=== PATIENT | female | born 1975 | race American Indian/Alaskan Native ===

== ENCOUNTER 2025-06-20 22:22 | Emergency (ER) | payer BC, SELFPAY ==
[2025-06-20 22:26] VITALS: BP 128/86
[2025-06-20 22:47] LABS: Hematocrit 45.0 % (37.0-47.0); Hemoglobin 15.7 g/dL (12.0-16.0); Mean Corp Hgb Conc. 34.9 g/dL (33.0-37.0); Mean Corpuscular Volume 87.0 fL (81.0-99.0); Nucleated Red Blood Cells % 0 %; Platelet Count 263 10^3/uL (130-400); Red Cell Dist. Width 12.4 % (11.5-14.5)
[2025-06-20 23:02] LABS: HCG, Serum Qualitative Screen Negative
[2025-06-20 23:06] LABS: ALT (SGPT) 38 U/L (0-35); AST (SGOT) 25 U/L (14-36); Albumin 4.8 g/dl (3.5-5.0); Alkaline Phosphatase 44 U/L (38-126); Blood Urea Nitrogen 13 mg/dl (7-17); Calcium 9.8 mg/dl (8.4-10.2); Carbon Dioxide 24 mmol/L (22-30); Chloride 106 mmol/L (98-107); Glucose 109 mg/dl (70-99); Potassium 4.3 mmol/L (3.5-5.1); Sodium 137 mmol/L (135-145); Total Protein 8.1 g/dl (6.3-8.2); eGFR > 60.00
[2025-06-20 23:10] LABS: Troponin I < 0.012 ng/ml
[2025-06-21 00:19] VITALS: BMI 32.3
[2025-06-21 01:07] VITALS: BP 122/71
[2025-06-21 02:27] LABS: Urine Character Slightly Cloudy (Clear)
--- NOTE | 2025-06-21 02:28 | ED.GENMED ---
History of Present Illness
General
Chief Complaint: Chest Pain
Source: patient
Exam Limitations: none
Time Seen by Provider: 06/21/25 01:42
Nursing documentation reviewed up to this point in time: agreed with except (Patient complains of left lateral distal rib/flank pain)
History of Present Illness
History of Present Illness:
This is a 50-year-old woman with history of hypertension, ghn-vunlrfo-onbxsbudm diabetes and 1 previous episode of shingles that occurred with COVID URI.
She complains of left lateral flank pain that began around 7 PM tonight. Left lateral flank pain is worse with direct palpation and she has a feeling or sense that she is swollen left lateral rib area. She denies cough nor shortness of breath, no
fevers or chills, no injury nor fall. No palpitations, no abdominal pain, no nausea or vomiting, no diarrhea or constipation. She denies heavy lifting. She denies dysuria nor urgency nor hematuria. She does admit to some urinary frequency but
this is chronic and she states related to liberal water drinking on a daily basis.
She and her returned from a trip to [facility] over 2 weeks ago. She denies leg pain or swelling.
She has remote history of hysterectomy.
Past History
Past History
ED Past Medical History: HTN and NIDDM
ED Past Surgical History: and Gynecological (Hysterectomy)
Social History
Tobacco: Non-smoker
Alcohol: None
Personal:
Living: with family
Employment: Employed
Family History
Family History: Other (Noncontributory)
Phy Exam
Physical Exam
Physical Exam:
GENERAL: 50-year-old woman appears her stated age, awake and alert, pleasant, appears in no acute distress. Vital signs within normal limits.
EYE: anicteric
NECK: Supple, nontender, no meningismus, no significant adenopathy.
ENT: oral mucosa is moist. No rhinorrhea.
CARDIAC: Regular rate and rhythm. no murmur. No rub.
LUNGS: Clear breath sounds bilaterally, no acute respiratory distress, no wheezes/rales/rhonchi. There is mild to moderate tenderness left lateral flank as well as mild tenderness left anterior distal costal margin and moderate tenderness left
posterior flank region. Palpation clearly reproduces patient's pain complaint. There is no soft tissue swelling. No ecchymosis and no rash.
ABDOMEN: Soft, nondistended, without focal tenderness, no r/g, mild left CVA tenderness to palpation as well as percussion, normoactive BS.
NEUROLOGICAL: Alert and oriented x3, no focal neuro deficits. Gait is kay and steady.
SKIN: Warm and dry, normal color, skin intact. No rash.
MUSCULOSKELETAL: No C/C/E. peripheral pulses are full and equal b/l. No palpable tenderness.
PSYCH: Normal and appropriate interaction.
Scores
Heart Score for Chest Pain Patients
STEMI patient?: No
History: Slightly or Non-Suspicious
ECG: Normal
Age: >45 - <65 years
Risk Factors: 1 or 2 Risk Factors
Troponin: </= Normal Limit
Heart Score for Chest Pain Patients: 2
Heart Score Risk: 2.5% MACE over next 6 weeks
Course
Orders/Labs/Results
Orders:
Orders
06/20/25 22:25
Electrocardiogram (*1) Urgent
Reason for Study: Chest Pain
EKG- Treatment ONCE
06/20/25 22:26
Test Result ONCE
06/20/25 22:41
Complete Blood Count/With Diff Urgent
Comprehensive Metabolic Panel Urgent
HCG, Serum Qualitative Screen Urgent
Comment: Notify provider if positive test present
Troponin I Urgent
06/21/25 01:19
Chest [CR Chest - 2 Views ] Urgent
Comment:
Reason For Exam: cp
06/21/25 01:51
CT Abd/pelvis W Iv Cont Urgent
Comment:
Reason For Exam: left flank pain
06/21/25 02:00
Urinalysis Reflex To Culture Urgent
Date Specimen was Collected: 06/21/25
Time Specimen was Collected: 01:59
Abnormal Lab Results
06/20/25
22:41
Abs Immat Gran (auto) 0.1 H 10^3/uL
(0-0.05)
Immature Gran % 0.7 H %
(0-0.5)
Glucose 109 H mg/dl
(70-99)
ALT 38 H U/L
(0-35)
06/20/25 22:41
06/20/25 22:41
Vital Signs
Initial and Last Documented VS:
Initial Vital Signs
Temp Pulse Resp BP Pulse Ox
99.0 F 91 16 128/86 100
06/20/25 22:26 06/20/25 22:26 06/20/25 22:26 06/20/25 22:26 06/20/25 22:26
Last Documented Vital Signs
Temp Pulse Resp BP Pulse Ox
99.0 F 70 24 122/71 97
06/20/25 22:26 06/21/25 01:30 06/21/25 01:01 06/21/25 01:07 06/21/25 01:30
MDM/Problems Addressed
Differential Diagnosis Includes:
Left lateral flank pain is clearly reproducible with local palpation. Concern for intercostal muscle strain, prodromal pain related to herpes zoster, other consideration is pyelonephritis, kidney stone, splenomegaly, left lower lobe pneumonia,
pleural effusion.
Although recent trip to [facility], pain does not appear pleuritic in nature, no shortness of breath nor cough, no history of thromboembolism thus PE is less likely.
As pain is left lateral flank region, reproducible with palpation, ACS is unlikely as well.
Thus far labs are unremarkable. Troponin is negative.
EKG is unremarkable, within normal limits.
Chest x-ray shows questionable mild haziness right hilum otherwise lungs are clear to auscultation. There is no effusion, no evidence of rib fracture, no pneumothorax.
Due to left flank pain, concern for underlying renal versus splenic issue recommend CT abdomen and pelvis and will check urinalysis as well.
Chronic conditions affecting care: DM and HTN
*Pulse Oximetry
SaO2: 97
Oxygen Mode of Delivery: Room air
Patient hypoxic: no
*EKG
Interpreted by ED Provider?: Yes
Interpretation: normal
Comparison EKG: no comparison EKG present
Rate: normal
Rhythm: sinus
[place]: normal axis
Interval: normal interval
QRS Pattern: normal QRS
Ischemia: no ischemia
*Car Park Attendant Interpretation
Rate: normal
Interpretation: normal
Rhythm: sinus
*Critical Care Note
Total Time (30-74mins, 75-104mins- exclusive of procedures): Not Applicable
Update Note
Update Note:
02:30
Patient requested to be discharged to home. She does not want to wait for CT.
Urinalysis is pending.
As above, left lateral flank pain is clearly reproducible and may be prodromal pain of herpes zoster. Other consideration is intercostal muscle strain. There is no definitive abdominal pain.
Lungs are clear to auscultation, no evidence of left lower lobe infiltrate nor effusion. She has not had a cough nor shortness of breath.
Recommend Tylenol versus ibuprofen as needed for pain. May trial local heat to her left lateral flank.
Encourage prompt follow-up with PCP for recheck. Prompt follow-up if vesicular grouped rash develops as this would be clearly indicative of herpes zoster/shingles.
Return precautions discussed.
ED Attending Note
-
Portions of this chart may have been created with voice recognition software.� Occasional wrong word or��sound alike� substitutions may have occurred due to the inherent limitations of voice recognition software.
Discharge Plan
Departure
Patient Disposition: Home (Routine Discharge)
Date of Disposition: 06/21/25
Time of Disposition: 02:28
Patient with high blood pressure during this ER visit?: No
Discharge Problem:
acute left lateral flank pain
Instructions: Flank pain - ED discharge instructions
Referrals:
UNKNOWN - PT DOES,NOT KNOW [Family Provider]
Activity Restrictions/Additional Instructions:
You may take Tylenol versus ibuprofen as needed for discomfort. You can trial moist heat or heating pad to your left lateral flank region, 20 to 30 minutes 4 times daily.
Follow-up with your primary care physician for recheck.
Interventions
Interventions:
*Risk Screen - Suicide Last Done: 06/20/25 22:26
*Neglect/Abuse Screening Last Done: 06/20/25 22:26
*ED- Fall Risk Assessment Last Done: 06/20/25 22:26
ED- Cardiac Assessment Last Done: 06/21/25 00:21
Discharge Date and Time
Print Language: CITIZEN OF [place]
[2025-06-21 02:33] VITALS: BP 120/78
== END 2025-06-21 02:35 | disposition home or self-care (01) ==
LOC: EMR 22:22
PROVIDERS: Student in an Organized Health Care Education/Training Program; EMERGENCY PHYSICIAN Emergency Medicine
DX: R10.9 Unspecified abdominal pain (principal); R07.81 Pleurodynia; I10 Essential (primary) hypertension; E11.9 Type 2 diabetes mellitus without complications; B02.9 Zoster without complications; R35.0 Frequency of micturition
CPT/HCPCS: 99283; 71046; 80053; 81003; 84484; 84703; 85025; 93005